=== PATIENT | male | born 1990 | race Caucasian/White ===

== ENCOUNTER 2023-05-13 04:18 | Emergency (ER) | payer BC, OTHER, SELFPAY ==
[2023-05-13 04:21] VITALS: BP 170/95
--- NOTE | 2023-05-13 06:30 | ED.GENMED ---
History of Present Illness
General
Chief Complaint: Musculo-Skeletal Complaint
Source: patient
Exam Limitations: none
Time Seen by Provider: 05/13/23 06:01
Travel History
Have you had any contact with someone who has COVID-19?: No
Do you have any symptoms of coronavirus? Fever > 100 degrees, chills, cough, shortness of breath, sore throat, loss of taste or smell, muscle aches, or headache?: No
History of Present Illness
History of Present Illness:
33-year-old male who presents after he woke up with low back pain yesterday. States the pain radiates down the right leg. Denies bowel or bladder incontinence. No fevers. No dysuria. 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 In addition,
he is a . Denies numbness or motor weakness.
Past History
Past History
ED Past Medical History: None
ED Past Surgical History: None
Phy Exam
Physical Exam
Physical Exam:
CONSTITUTIONAL Vital signs reviewed, Patient alert and oriented to person, place and time. Well-appearing
HEAD atraumatic, normocephalic.
EYES eyelids normal to inspection, Extraocular muscles intact, Conjunctiva normal, Sclera normal.
NECK normal range of motion, Trachea midline, no jugular venous distention.
RESP no respiratory distress
BACK No obvious deformities, no midline tenderness, no paraspinal tenderness
UPPER EXTREMITY Gross Range of motion normal, gross motor strength normal
LOWER EXTREMITY Gross range of motion normal, Gross motor strength normal
NEURO Speech normal, No focal motor deficits include, Milagros coma scale 15, Memory normal, Cranial Nerves intact to screening exam. Normal patellar DTRs bilaterally. No clonus
SKIN Skin warm, dry, and normal in color.
PSYCHIATRIC Patient oriented to person place and time, Normal affect.
Course
Orders/Labs/Results
Orders:
Orders
05/13/23 06:29
Prednisone [Deltasone] 50 mg PO NOW STA
Vital Signs
Initial and Last Documented VS:
Initial Vital Signs
Temp Pulse Resp BP Pulse Ox
98.7 F 79 16 170/95 99
05/13/23 04:21 05/13/23 04:21 05/13/23 04:21 05/13/23 04:21 05/13/23 04:21
Last Documented Vital Signs
Temp Pulse Resp BP Pulse Ox
98.7 F 79 16 170/95 99
05/13/23 04:21 05/13/23 04:21 05/13/23 04:21 05/13/23 04:21 05/13/23 04:21
MDM/Problems Addressed
MDM/Problems Addressed:
Low back pain, lumbar radiculopathy, uncontrolled hypertension
*Pulse Oximetry
Patient hypoxic: no
*Critical Care Note
Total Time (30-74mins, 75-104mins- exclusive of procedures): Not Applicable
Data Reviewed
Source: patient
Prescriptions/Medications Considered But Not Given:
Consider narcotic pain medications cessation as well as steroids
Further Testing Considered But Not Given:
Considered x-ray but no fall
Patient Management
Escalation/DeEscalation of care consider admission/obs:
Normal neurologic assessment. No clinical concern for cauda equina syndrome. Trial steroids, muscle relaxation. Also will provide follow-up information with pain management. Hypertension likely related to pain
ED Attending Note
-
Portions of this chart may have been created with voice recognition software.� Occasional wrong word or��sound alike� substitutions may have occurred due to the inherent limitations of voice recognition software.
Discharge Plan
Departure
Patient Disposition: Home (Routine Discharge)
Date of Disposition: 05/13/23
Time of Disposition: 06:33
Patient with high blood pressure during this ER visit?: Yes
Discharge Problem:
Low back pain, Acute lumbar radiculopathy
Instructions: Radiculopathy, Low Back Pain ED, BLOOD PRESSURE
Prescriptions:
New
prednisone 10 mg Tablet
See Rx Instructions .ROUTE .COMPLEX Qty: 45 0RF
Rx Instructions:
Take By Mouth:
50 mg daily x3 days, 40 mg daily x3 days,
30 mg daily x3 days, 20 mg daily x3 days,
10 mg daily x3 days
diazepam 5 mg tablet
5 mg PO TID PRN (Reason: muscle spasm) Qty: 15 0RF
Referrals:
Yannick Alexandre MD [Active] -
Janusz Reza MD [Family Provider] -
Stand Alone Forms: Return to Work
Activity Restrictions/Additional Instructions:
Please see your doctor or pain management in the next 1 week for follow-up and reevaluation. Please rest. Return immediately for worsening pain, fevers, difficulty urinating, difficulty with bowel movements, motor weakness or any other concerns.
Interventions
Interventions:
*Risk Screen - Suicide Last Done: 05/13/23 04:21
*General Assessment Last Done: 05/13/23 04:21
*Neglect/Abuse Screening Last Done: 05/13/23 04:21
ED- Fall Risk Assessment Last Done: 05/13/23 06:01
*ED COVID-19 Vaccine History Last Done: 05/13/23 04:21
ED-Musculoskeletal Assessment Last Done: 05/13/23 06:01
[2023-05-13] MEDS: DELTASONE 50 MG PO (06:32)
[2023-05-13 06:34] VITALS: BP 141/83
== END 2023-05-13 06:43 | disposition home or self-care (01) ==
LOC: EMR 04:18
PROVIDERS: EMERGENCY PHYSICIAN Emergency Medicine; FAMILY PHYSICIAN Internal Medicine
DX: M54.16 Radiculopathy, lumbar region (principal); M54.50 Low back pain, unspecified; I10 Essential (primary) hypertension
CPT/HCPCS: 99283

== ENCOUNTER → 2023-08-29 14:25 | Outpatient (REF) | payer BC, OTHER, SELFPAY | LOC: RCS 14:25 | PROVIDERS: ATTENDING PHYSICIAN Internal Medicine Cardiovascular Disease; FAMILY PHYSICIAN Family Medicine | DX: R06.02 Shortness of breath (principal) | CPT/HCPCS: 93017 ==